=== PATIENT | male | born 1950 | race Caucasian/White ===

== ENCOUNTER 2017-03-02 15:30 | Emergency (ER) | payer OTHER ==
[2017-03-02 15:48] VITALS: RESP 16
[2017-03-02] MEDS ORDERED: TDAP ADULT 0.5 ML INJ (BOOSTRIX) IM ONE (16:03)
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
[2017-03-02 17:12] VITALS: BP 139/88; PULSE 70; TEMP 98.1; O2SAT 92
== END 2017-03-02 17:12 | disposition home or self-care (01) ==
PROC: 3E0234Z Introduction of Serum, Toxoid and Vaccine into Muscle, Percutaneous Approach (ICD-10-PCS; principal; 2017-03-02)
DX: S80.212A Abrasion, left knee, initial encounter (principal); S50.312A Abrasion of left elbow, initial encounter; Z23 Encounter for immunization; V19.40XA Pedal cycle driver injured in collision with unspecified motor vehicles in traffic accident, initial encounter; Y92.410 Unspecified street and highway as the place of occurrence of the external cause; Y99.8 Other external cause status; Y93.89 Activity, other specified

== ENCOUNTER 2017-09-28 12:39 | Emergency (ER) | payer OTHER ==
--- NOTE | 2017-09-28 14:12 | EDPHY ---
H & P Time Seen by Provider: 09/28/17 14:11 HPI/ROS: Chief complaint. Blurry vision HPI. 67-year-old male presents emergency department with 1 day history of irritated red eyes that began last evening. Now today he has yellow drainage. He does have slight upper respiratory symptoms. However no fever, cough, chest pain, shortness of breath. He did have a sore throat yesterday. He does not have any eye history in terms of glaucoma or previous eye surgeries. He wears corrective lenses. He feels his vision is slightly blurry secondary to the sticky nature of the drainage ROS Constitutional. no fever/chills, no weakness Eyes. Blurry vision with yellow drainage ENT. URI symptoms Cardiovascular. no chest pain Respiratory. no shortness of breath, no cough Abdominal. no abdominal pain, no nausea/vomiting, no diarrhea . no problems urinating MS. no calf pain/swelling, no neck/back pain, no joint pain Skin. no rash Lymph. no swollen glands Neuro. no headache, no dizziness, no difficulty walking or with speech Past Medical/Surgical History: Healthy Social History: , nonsmoker, no alcohol Smoking Status: Smoker current status UNK Physical Exam: General Appearance: Alert well-developed male mild distress vital signs stable Eyes: Pupils equal round reactive. Slight injection. Yellow discharge especially from the left eye and some from the right eye.. ENT, Mouth: Mucous membranes are moist. Respiratory: There are no retractions, lungs are clear to auscultation. Cardiovascular: Regular rate and rhythm. Gastrointestinal: Abdomen is soft and nontender, no masses, bowel sounds normal. Neurological: Awake and alert, sensory and motor exams grossly normal. Skin: Warm and dry, no rashes. Musculoskeletal: Neck is supple nontender. Extremities symmetrical, full range of motion. Psychiatric: Patient is oriented X 3, there is no agitation. Constitutional: Initial Vital Signs Temperature (C) 36.5 C 09/28/17 12:40 Heart Rate 87 09/28/17 12:40 Respiratory Rate 18 09/28/17 12:40 Blood Pressure 146/86 H 09/28/17 12:40 O2 Sat (%) 95 09/28/17 12:40 O2 Delivery Mode Room Air Allergies/Adverse Reactions: No Known Allergies Allergy (Verified 09/28/17 12:41) Home Medications: Medication Instructions Recorded Ciprofloxacin [Ciloxan Opth Drops] 2 drops EACHEYE QID #1 bottle 09/28/17 Medical Decision Making Procedures: Visual acuity 20 / 30 both eyes ED Course/Re-evaluation: On re-evaluation the patient is stable. He and I discussed treatment plan including criteria for return importance of follow-up further evaluation. He expresses understanding and agreement Differential Diagnosis: I considered bacterial versus viral conjunctivitis. Patient does have an upper respiratory infection. Does have yellow drainage. Departure - Departure Disposition: Home, Routine, Self-Care Condition: Good Instructions: Conjunctivitis (ED) Additional Instructions: Antibiotic eyedrops using 2 drops 4 times daily for 3-4 days. Return for worsening symptoms. Follow up with Ophthalmology for continuing symptoms. No contact lens until 24 hours after your symptoms have resolved Referrals: Avelino Bush MD [Primary Care Provider] - As per Instructions MARLON ADAME I [Medical Doctor] - 2-3 days, if not improved Prescriptions: Ciprofloxacin [Ciloxan Opth Drops] 2 drops EACHEYE QID #1 bottle
[2017-09-28 14:41] VITALS: BP 135/80; PULSE 75; RESP 16; TEMP 98.6; O2SAT 97
== END 2017-09-28 14:41 | disposition home or self-care (01) ==
DX: H10.9 Unspecified conjunctivitis (principal)